=== PATIENT | male | born 1960 | race Caucasian/White ===

== ENCOUNTER 2017-08-03 23:45 | Emergency (ER) | payer OTHER ==
[2017-08-04 00:34] LABS: Hematocrit 38.8 % (42.0-52.0); Mean Platelet Volume 7.9 fL (7.4-10.4); White Blood Cell (WBC) Count 42.3 thou/uL (4.8-10.8)
[2017-08-04 00:37] LABS: Neutrophil 10 % (42-75); Reactive Lymphocytes 2 % (0-10)
[2017-08-04 00:38] LABS: ALT (SGPT) 20 U/L (8-55); AST (SGOT) 19 U/L (5-34); Alkaline Phosphatase 63 U/L (40-150); Anion Gap 15 mmol/L (10-20); BUN (Urea Nitrogen) 20 mg/dL (8.4-25.7); Bilirubin, Total 1.2 mg/dL (0.2-1.2); Calc. Creatinine Clearance 0 mL/min (70-130); Calcium 9.1 mg/dL (7.8-10.44); Carbon Dioxide 24 mmol/L (22-29); Chloride 104 mmol/L (98-107); Estimated GFR-MDRD 66; Globulin 2.4 g/dL (2.4-3.5); Magnesium 2.4 mg/dL (1.6-2.6); Protein, Total 6.8 g/dL (6.0-8.3)
[2017-08-04 01:04] LABS: Phosphorus 3.6 mg/dL (2.3-4.7); Uric Acid 5.9 mg/dL (3.5-7.2)
== END 2017-08-04 02:10 | disposition home or self-care (01) ==
LOC: ERS 23:45
DX: R59.0 Localized enlarged lymph nodes (principal); C91.10 Chronic lymphocytic leukemia of B-cell type not having achieved remission; J02.9 Acute pharyngitis, unspecified; F43.10 Post-traumatic stress disorder, unspecified; Z87.891 Personal history of nicotine dependence
CPT/HCPCS: 36415; 80053; 83735; 84100; 84550; 85025; 85060; 88184; 99283

== ENCOUNTER 2017-12-31 03:16 | Emergency (ER) | payer OTHER ==
[2017-12-31] MEDS ORDERED: Morphine 4 MG/ML VIAL ONE (04:08)
[2017-12-31] MEDS ORDERED: Ondansetron ODT 4 MG TAB ONE (04:08)
[2017-12-31 04:37] LABS: Hemoglobin 11.1 g/dL (14.0-18.0); Mean Corpuscular HGB CONC 34.4 g/dL (32.0-36.0); Mean Corpuscular Hemoglobin 34.8 pg (27.0-31.0); RBC Distribution Width 13.2 % (11.5-14.5); Red Blood Cell (RBC) Count 3.18 mill/uL (4.70-6.10); White Blood Cell (WBC) Count 36.6 thou/uL (4.8-10.8)
[2017-12-31 04:52] LABS: Lymphocytes 86 % (21-51); MDiff Complete? YES; Monocytes 3 % (0-10); Neutrophil 9 % (42-75); Platelet Count 124 thou/uL (130-400); Reactive Lymphocytes 2 % (0-10)
[2017-12-31 05:07] LABS: Bilirubin Negative (Negative); Blood, Urine Negative (Negative); Clarity CLEAR (Clear); Glucose, Urine (Dipstick) Negative (Negative); Leukocyte Negative (Negative); Nitrite Negative (Negative); Protein, Urine (Dipstick) Negative (Neg-Trace); Urobilinogen 0.2 mg/dL (0.2-1.0); pH, Urine 5.5 (5.0-9.0)
[2017-12-31 05:21] LABS: Specific Gravity, Urine 1.044 (1.002-1.036)
[2017-12-31 05:32] LABS: ALT (SGPT) 18 U/L (8-55); AST (SGOT) 15 U/L (5-34); Albumin 4.4 g/dL (3.5-5.0); Alkaline Phosphatase 52 U/L (40-150); Anion Gap 11 mmol/L (10-20); BUN (Urea Nitrogen) 19 mg/dL (8.4-25.7); Bilirubin, Total 1.1 mg/dL (0.2-1.2); Calc. Creatinine Clearance 0 mL/min (70-130); Calcium 9.3 mg/dL (7.8-10.44); Carbon Dioxide 24 mmol/L (22-29); Chloride 107 mmol/L (98-107); Estimated GFR-MDRD 85; Globulin 1.8 g/dL (2.4-3.5); Glucose 90 mg/dL (70-105); Potassium 3.8 mmol/L (3.5-5.1); Protein, Total 6.2 g/dL (6.0-8.3); Sodium 138 mmol/L (136-145)
[2017-12-31] MEDS ORDERED: Acetaminophen/Codeine 30-300mg Tablet ONE (06:00)
--- NOTE | 2017-12-31 08:10 | CT ---
PRELIMINARY REPORT/[facility]/EMERGENTY AFTER-HOURS PROCEDURE CT Abdomen and Pelvis With Intravenous Contrast CLINICAL HISTORY: 57 years old, male; Pain; Abdominal pain; Generalized; Patient HX: M57 with HX of bladder ca and CLL presented to ed C/O llq pain onset yesterday. Pt describes the pain as stabbing. Pt reports having so me mild pain in his rlq as well. Pt reports he went bathroom around 0230 last night and had a bm with small amount of hard stool. Pt denies HX of kidney stones. Pt denies fever, hematuria, dysu jaiden, vomiting, nausea, abdominal surgical HX. Pt reports he's been constipated previously and needed to take mag citrate to help. Undescended testicle which was surgically corrected when he was 10. TECHNIQUE: Axial computed tomography images of the abdomen and pelvis with intravenous contrast. Coronal reforma tted images were created and reviewed. CONTRAST: 100 mL of ISOVUE 370 administered intravenously. COMPARISON: No relevant prior studies available. FINDINGS: Lung bases: There is subpleural atelectasis of the dependent portions of the lungs. ABDOMEN: Liver: There are multiple liver hypodensities that cannot be further characterized on the current exa mination. Gallbladder and bile ducts: The gallbladder is normal. There is no evidence of biliary ductal dilatio n. No calcified stones. Pancreas: The pancreas appears normal. No ductal dilation. Spleen: The spleen is moderate markedly enlarged with wedge-shaped hypoattenuation involving the lowe r aspect of the spleen. This may represent splenomegaly from neoplastic etiology with auto infarction or possible prior splenic artery embolization for a consumptive coagulopathy. There is trace thickening/stranding within the adjacent retroperitoneal reflection. Adrenals: The adrenal glands are normal. Kidneys and ureters: The kidneys appear normal. No hydronephrosis. Stomach and bowel: The stomach is normal. No obstruction. No mucosal thickening. Appendix: A normal appendix is identified. PELVIS: Bladder: The bladder is normal. Reproductive: The prostate gland and seminal vesicles are normal. ABDOMEN and PELVIS: Intraperitoneal space: Normal. No free air. No significant fluid collection. Bones/joints: No acute fracture. No dislocation. Soft tissues: Normal. Vasculature: See above. Lymph nodes: There are innumerable periaortic lymph nodes the largest of which measures approximately 18 mm in short axis. Several enlarged pelvic lymph nodes are also present for example a 27 mm LEFT i nguinal chain lymph node and a 27 mm RIGHT inguinal chain lymph node. IMPRESSION: 1. Marked splenomegaly with nonspecific wedge-shaped hypoattenuation possibly representing Auto infar ction versus partial splenic embolization. Trace stranding within the adjacent retroperitoneal reflec tion is noted. 2. Marked abdominal lymphadenopathy as above. This corresponds with known CLL. Findings were discussed with NARCISO CAMPOS at 12/31/2017 5:05 AM CDT. Thank you for allowing us to participate in the care of your patient. Dictated and Authenticated by: Adi Maher MD 12/31/2017 5:05 AM Central Time ([place] & [place]) FINAL REPORT CT ABDOMEN AND PELVIS WITH CONTRAST: HISTORY: Left lower abdomen pain. COMPARISON: None. FINDINGS/IMPRESSION: Findings and impression are concordant with the preliminary report. POS: [facility]
== END 2017-12-31 08:27 ==
LOC: ERS 03:16
DX: D73.5 Infarction of spleen (principal); F43.10 Post-traumatic stress disorder, unspecified; Z87.891 Personal history of nicotine dependence; Z79.899 Other long term (current) drug therapy
CPT/HCPCS: 74177; 80053; 81003; 83605; 85025; 87086; 96361; 96374; J2270; Q0162

== ENCOUNTER 2018-02-21 03:01 | Inpatient (IN) | payer OTHER ==
[2018-02-21 03:35] LABS: #Lymphocytes 0.3 thou/uL (1.20-3.40); #Neutrophils 6.4 thou/uL (1.40-6.50); %Eosinophils 0.5 % (0.0-10.0); %Lymphocytes 4.8 % (21.0-51.0); %Monocytes 0.5 % (0.0-10.0); %Neutrophils 94.2 % (42.0-75.0); Hemoglobin 13.9 g/dL (14.0-18.0); Mean Corpuscular HGB CONC 34.4 g/dL (32.0-36.0); Mean Corpuscular Hemoglobin 32.1 pg (27.0-31.0); Mean Corpuscular Volume 93.3 fl (80.0-94.0); Platelet Count 150 thou/uL (130-400); RBC Distribution Width 14.3 % (11.5-14.5); Red Blood Cell (RBC) Count 4.32 mill/uL (4.70-6.10); White Blood Cell (WBC) Count 6.7 thou/uL (4.8-10.8)
[2018-02-21 03:55] LABS: ALT (SGPT) 16 U/L (8-55); AST (SGOT) 16 U/L (5-34); Albumin 4.7 g/dL (3.5-5.0); Alkaline Phosphatase 61 U/L (40-150); Anion Gap 14 mmol/L (10-20); BUN (Urea Nitrogen) 12 mg/dL (8.4-25.7); Bilirubin, Total 0.5 mg/dL (0.2-1.2); CK (CPK) 18 U/L (30-200); Calc. Creatinine Clearance 0 mL/min (70-130); Calcium 9.6 mg/dL (7.8-10.44); Carbon Dioxide 27 mmol/L (22-29); Chloride 104 mmol/L (98-107); Estimated GFR-MDRD 74; Glucose 121 mg/dL (70-105); Potassium 4.1 mmol/L (3.5-5.1); Protein, Total 6.7 g/dL (6.0-8.3); Sodium 141 mmol/L (136-145)
[2018-02-21 04:00] LABS: CKMB 0.5 ng/mL (0-6.6); Troponin I Less than 0.010 ng/mL (< 0.028)
[2018-02-21] MEDS ORDERED: Morphine 4 MG/ML VIAL ONE ×2 (04:29→09:20)
[2018-02-21] MEDS ORDERED: Morphine 10 MG/ML VIAL ONE (04:54)
[2018-02-21] MEDS ORDERED: Enoxaparin Sodium 100 MG/ML SYRINGE ONE (05:21)
[2018-02-21] MEDS ORDERED: Ondansetron PF 4 MG/2 ML Vial IVP PRN ×2 (06:01→07:47)
[2018-02-21] MEDS ORDERED: Acetaminophen 325 MG TAB PO PRN (06:01)
[2018-02-21] MEDS ORDERED: Ondansetron ODT 4 MG TAB SL PRN (06:01)
[2018-02-21 06:16] VITALS: BMI 25.8
[2018-02-21 07:02] LABS: Troponin I Less than 0.010 ng/mL (< 0.028)
[2018-02-21] MEDS: Morphine 4 MG/ML VIAL IV PRN ×2 (07:14→09:21)
[2018-02-21] MEDS ORDERED: Promethazine HCl 25 MG/ML VIAL IM PRN (07:47)
[2018-02-21] MEDS ORDERED: Zolpidem Tartrate 5 MG TAB PO PRN (07:47)
[2018-02-21] MEDS ORDERED: HYDROmorphone 10 mg/100 ml CADD IV PRN (07:47)
[2018-02-21] MEDS ORDERED: diphenhydrAMINE 50 MG/ML VIAL IM/IV PRN (07:47)
[2018-02-21] MEDS ORDERED: Naloxone HCl 0.4 mg/ml Vial IV PRN (07:47)
[2018-02-21] MEDS ORDERED: diphenhydrAMINE 25 MG CAP PO PRN (07:47)
--- NOTE | 2018-02-21 08:02 | RAD ---
AP VIEW CHEST: HISTORY: Chest pain. FINDINGS: AP view chest is obtained on 02/21/18. Comparison study is not available. AP view chest demonstrates right jugular MediPort catheter. A moderate degree of pulmonary vascular congestion is seen. No evidence of effusions, pneumonia, or pneumothorax is seen. There appears to be a healed left mid clavicular fracture. IMPRESSION: Pulmonary vascular congestion; otherwise, unremarkable AP view chest. POS: [facility]
--- NOTE | 2018-02-21 08:10 | CT ---
PRELIMINARY REPORT/[facility]/EMERGENCY AFTER HOURS PROCEDURE: Addendum created by Henry Márquez MD on 02/21/2018 4:18 AM Central Time ( & [place]) Findings discus sed with UNIQUE KEY MD at time of interpretation. Initial Report created on 02/21/2018 4:14 AM Cent ral Time ( & [place]) EXAM: CT Angiography Chest With Intravenous Contrast EXAM DATE/TIME: Exam ordered 02/21/2018 3:52 AM CLINICAL HISTORY: 57 years old, male; Pain; Chest pain; Patient HX: Er 1; Pt says l shoulder pain waking up from sleep, took pain medicine and began experiencing chest pain an hour ago. HX of bladder cancer - last round of chemo 02/01/18 TECHNIQUE: Axial computed tomographic angiography images of the chest with intravenous contrast using pulmonary embolism protocol. MIP reconstructed images were created and reviewed. COMPARISON: No relevant prior studies available. FINDINGS: Pulmonary arteries: Unremarkable. No pulmonary embolism. Aorta: Normal aorta. No thoracic aortic aneurysm. Lungs: Lungs are clear allowing for expiratory phase imaging. No mass. Pleural space: Unremarkable. No significant effusion. No pneumothorax. Heart: Unremarkable. No cardiomegaly. No significant pericardial effusion. No evidence of RV dysfunct ion. Mediastinum: Esophagus is unremarkable. Bones/joints: No acute fracture. No dislocation. Soft tissues: Gynecomastia. Lymph nodes: Unremarkable. No enlarged lymph nodes. Spleen: Splenomegaly. Moderate-sized posterolateral splenic infarction. IMPRESSION: Splenomegaly. Moderate-sized posterolateral splenic infarction. Thank you for allowing us to participate in the care of your patient. Dictated and Authenticated by: Henry Márquez MD 02/21/2018 4:14 AM Central Time ( & [place]) FINAL REPORT CT ANGIO CHEST PERFORMED WITH IV CONTRAST ENHANCEMENT WITH 3D RECONSTRUCTIONS: Date: 02/21/18 HISTORY: Chest pain. FINDINGS: The lungs are clear of any infiltrative process. There is some atelectatic change within the lung bas es. No pulmonary nodules are identified. There is no significant mediastinal or hilar adenopathy. The re is some mild coronary artery calcification seen. The thoracic aorta is normal in caliber. There is fairly good pulmonary artery opacification. There i s no evidence for pulmonary embolus. Visualized liver parenchyma is normal. There is a wedge-shaped low attenuation area within an enlarge d spleen most compatible with an infarct. Spleen is not seen in its entirety, but appears enlarged. I t measures 13.0 cm in transverse dimension. IMPRESSION: 1. No CT evidence of pulmonary embolus. 2. Splenomegaly with evidence of a splenic infarct. This report is in agreement with the preliminary report issued by [facility]. POS: [facility]
[2018-02-21] MEDS ORDERED: OXYCODONE HCL 5 MG PO PRN (08:47)
[2018-02-21] MEDS ORDERED: Non-Formulary Item 1 EACH (Prochlorperazine Maleate [Prochlorperazine Maleate] 10 MG) PO SCH (09:00)
[2018-02-21] MEDS ORDERED: Non-Formulary Item 1 EACH (Multivitamin [Multi-Vitamin Daily] 1 TABLET) PO SCH (09:00)
[2018-02-21] MEDS ORDERED: Non-Formulary Item 1 EACH (Fluconazole [Fluconazole] 200 MG) PO SCH (09:00)
[2018-02-21] MEDS ORDERED: Morphine 4 MG/ML VIAL SLOW IVP PRN (09:30)
[2018-02-21 09:39] LABS: Troponin I Less than 0.010 ng/mL (< 0.028)
[2018-02-21] MEDS ORDERED: oxyCODONE 5 MG TAB PO PRN (09:42)
[2018-02-21] MEDS: valACYclovir 500 MG TAB PO SCH ×2 (10:02→20:21)
[2018-02-21] MEDS: Fluconazole 100 MG TAB PO SCH (10:02)
[2018-02-21] MEDS: Multivit, Therapeutic 1 TAB PO SCH (10:02)
[2018-02-21] MEDS: Allopurinol 300 MG TAB PO SCH (10:02)
--- NOTE | 2018-02-21 10:11 | HP ---
DATE OF ADMISSION: 02/21/2018 HISTORY OF PRESENT ILLNESS: This is a 57-year-old white male with a history of CLL followed by Dr. Lisa sun, first diagnosed in 04/2016. He presents with left shoulder pain. The patient's CLL has bee n controlled for many years. He was doing well until November of this year when he developed left-sided abdominal pain and was diagnosed with a splenic infarct. He was then referred to his oncologist in [place] where he received chemotherapy. He was doing again well until yesterday about 1:15 a.m. when he developed acute onset of left shoulder pain. He took an oxycodone at home without relief. He the n came to the ER where he was given morphine and his pain decreased from a 10 to a 4. He does have a history of a shattered shoulder from war. At this time, the patient does not want to be referred to [place]. He did receive a CT scan of his abdomen which revealed evidence of a new splenic infarct. In November of this year his platelet count he states decreased to 4 and he required a platelet transfus ion. PAST MEDICAL HISTORY: 1. Nicotine dependence. 2. History of bladder cancer. 3. Erectile dysfunction. 4. 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 5. CLL followed by Dr. Li. PAST SURGICAL HISTORY: Include undescended testes 1970, knee surgery in 1990, bladder cancer surgery in 2003 and 2008, colonoscopy normal in 2003, bladder cancer tumor removal in [place] 07/2004 harman angelia with chemo, bladder cancer removal in 2005 with recurrence with further treatment. FAMILY HISTORY: Positive for diabetes, CVA, hypertension and some unknown cancers. MEDICATIONS: Oxycodone p.r.n., Zoloft 50 daily, Wellbutrin 150 b.i.d. and other chemo agents. REVIEW OF SYSTEMS: As above. ALLERGIES: SULFA. PHYSICAL EXAMINATION: VITAL SIGNS: Temperature 99.2, pulse 100, respirations 20, pulse ox 95, blood pressure 139/78. GENERAL: The patient is in moderate pain. HEENT: Clear. HEART: Regular rate and rhythm. LUNGS: Clear. Left shoulder is nontender. ABDOMEN: Soft, nontender, normal bowel sounds. EXTREMITIES: With no edema. LABORATORY: White count 6.7, H&H 13 and 40, platelet of 150. Electrolytes normal. Creatinine 1.04, BUN 12, blood sugar 121. Troponin I less than 0.010. BNP 10. Chest x-ray negative. Chest CT; splenomegaly with evidence of a splenic infarct. Has a moderate siz ed posterolateral splenic infarct. ASSESSMENT: 1. Severe left shoulder pain. 2. 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 3. Chronic lymphocytic leukemia presently followed by an oncologist in [place]. The patient has move d to [place] 1 year ago, but still has not yet moved entirely. Plans to move permanently to [place] in J lennie of this year. 4. Post-traumatic stress disorder. 5. Tobacco use. 6. History of bladder cancer. PLAN: 1. Consult Dr. Li. 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 3. Continue chemo.
[2018-02-21] MEDS: Dexamethasone 4 MG TAB PO SCH (10:21)
[2018-02-21] MEDS ORDERED: ISOVUE-370 76%-LOCM 1 ML ONE (14:49)
--- NOTE | 2018-02-21 18:48 | CON ---
DATE OF CONSULTATION: 02/21/2018 REASON FOR CONSULTATION: CLL. HISTORY OF PRESENT ILLNESS: Mr. Casey is a 57-year-old male who was diagnosed with CLL in 2015. He was monitored and did well until 11/2017 when he developed thrombocytopenia. 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 He was started on flu darabine, Rituxan and Cytoxan by his oncologist in [place]. He has received 2 cycles. He saw signifi cant improvement in his symptoms with the first cycle of chemotherapy. His pain at the time of the d iagnosis of the splenic infarct was in the left lower quadrant of his abdomen. Last night, he develo ped acute onset left shoulder pain. He took an oxycodone with cold water and immediately had chest p ain. His pain was 10/10. It was not associated with diaphoresis. He was brought to the emergency r oom here for evaluation. A CT angiogram was negative for pulmonary embolism. It did note the spleni c infarct, but did not compare to a prior CT. 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 PAST MEDICAL HISTORY: 1. CLL. 2. Superficial bladder cancer. 3. Posttraumatic stress disorder. 4. Shattered left shoulder. PAST SURGICAL HISTORY: 1. Undescended testicle. 2. Vasectomy. 3. Left knee surgery. 4. Cystoscopy, fulguration of bladder tumor in 2006. ALLERGIES: SULFA. HOME MEDICATIONS: 1. Tylenol No. 3 every 4 hours p.r.n. 2. Allopurinol 300 mg daily. 3. Dapsone 100 mg daily. 4. mg daily. 5. Colace 100 mg p.r.n. 6. Fluconazole 200 mg daily. 7. Mucinex daily. 8. Oxycodone 5 mg p.o. p.r.n. 9. Valacyclovir 500 mg b.i.d. FAMILY HISTORY: Sister, esophageal cancer. SOCIAL HISTORY: , has 2 children, lives with his spouse. 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 They split time l iving in [place] and [place] with permanently moving to [place] in March. REVIEW OF SYSTEMS: Twelve point review of system is negative except for noted in HPI. PHYSICAL EXAMINATION: VITAL SIGNS: Temperature is 97.9, pulse is 110, respiratory rate 18, BP is 136/78. He is 94% on 2 l iters. GENERAL: Well-developed, well-nourished male, in no acute distress. HEENT: Normocephalic, atraumatic. Pupils equal and reactive to light. NECK: Supple. CARDIOVASCULAR: Regular rate and rhythm. LUNGS: Clear. ABDOMEN: Soft, nontender, bowel sounds are positive. There is no palpable organomegaly. EXTREMITIES: No clubbing, cyanosis or edema. SKIN: No rash. HEMATOLOGIC: No petechia or purpura. NEUROLOGIC: Nonfocal. PSYCHIATRIC: The patient is alert and oriented and appropriate. PERTINENT LABORATORY AND X-RAYS: Current WBCs are 6.7, hemoglobin 13.9, hematocrit 40.3, platelet co unt is 150,000, 94% neutrophils, 5% lymphocytes. Sodium is 141, potassium 4.1, chloride 104, CO2 is 27, BUN is 12, creatinine 1.04, calcium is 9.6, bilirubin is 0.5, AST 16, ALT 16, alkaline phosphatas e is 61, creatinine kinase is 18. Troponin is negative. Serum total protein is 6.7, albumin 4.7, gl obulin 2. BNP is less than 10. Radiology per HPI. IMPRESSION: 1. Chronic lymphocytic leukemia, on chemotherapy. 2. History of splenic infarct. 3. Left shoulder and back pain. DISCUSSION: I spoke with Dr. Hyman and Dr. Li. Dr. Hyman looked at the patient's CT angiogram f rom yesterday and compared the spleen with the abdomen and pelvis CT dated in December. There is a sign ificant improvement in splenomegaly and a reduction in the splenic infarct consistent with the patien t's improvement in symptoms. His pain is different than when he presented in December with the infarct. He does have a history of left shoulder injury and chronic pain, while this could be from the splee n. It is unclear the cause of his left shoulder pain. We would recommend pain control at this time. He is due for treatment next week and he will follow up with his oncologist in [place] for treatment . Thank you for the consult. We will follow his hospital course with you.
[2018-02-21] MEDS: Prochlorperazine Maleate 5 MG TAB PO SCH (20:21)
[2018-02-21] MEDS: Docusate 100 MG CAP PO PRN (20:25)
--- NOTE | 2018-02-22 08:25 | PRG ---
DATE OF SERVICE: 02/22/2018 SUBJECTIVE: The patient's pain this morning is 2/10. Pain has improved since yesterday. 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 He is on 5 mg. OBJECTIVE: VITAL SIGNS: Temperature 97.7, pulse 86, respirations 18, pulse ox 94, blood pressure 124/68. HEART: Regular rate and rhythm. LUNGS: Clear. ABDOMEN: Soft. LABORATORY DATA: None. ASSESSMENT: 1. Chronic lymphocytic leukemia on chemo. 2. History of splenic infarct. 3. Left shoulder/back pain. Today, the pain seems to radiate from the thoracic spine to his left sh oulder and also to his right flank. 4. Post-traumatic stress disorder. 5. Tobacco use. 6. History of bladder cancer. PLAN: 1. We will discuss with Verónica for further plans. 2. Okay with anesthesia as the patient is requesting that the DATA DESIGNER stopped and the patient will be pl aced on oxycodone p.r.n. 3. We will obtain plain x-rays of the left shoulder and thoracic spine for now. If any other x-rays are needed, they can possibly done in [place]. I do not think he has had a bone scan. The patient i s appreciative and welcoming any recommendations on our part.
[2018-02-22] MEDS: Allopurinol 300 MG TAB PO SCH (09:22)
[2018-02-22] MEDS: Dexamethasone 4 MG TAB PO SCH (09:23)
[2018-02-22] MEDS: Fluconazole 100 MG TAB PO SCH (09:24)
[2018-02-22] MEDS: Multivit, Therapeutic 1 TAB PO SCH (09:24)
[2018-02-22] MEDS: Prochlorperazine Maleate 5 MG TAB PO SCH ×2 (09:25→20:27)
[2018-02-22] MEDS: valACYclovir 500 MG TAB PO SCH ×2 (09:25→20:28)
[2018-02-22] MEDS: Docusate 100 MG CAP PO PRN ×2 (09:26→20:28)
--- NOTE | 2018-02-22 09:27 | RAD ---
THREE VIEWS OF THE LEFT SHOULDER: DATE: 02/22/18. COMPARISON: None. HISTORY: Pain. FINDINGS: There is no evidence for dislocation of the glenohumeral joint. There is no widening of the acromioc lavicular or coracoclavicular interspace. Old left-sided clavicle fracture noted. IMPRESSION: No acute osseous abnormality. POS: [facility]
--- NOTE | 2018-02-22 09:28 | RAD ---
THORACIC SPINE 3 VIEWS: HISTORY: Back pain. FINDINGS/IMPRESSION: Degenerative changes are present in the thoracic spine. No fracture, subluxation, or bony destructio n is identified. POS: [facility]
[2018-02-22] MEDS: Acetaminophen/Codeine 30-300mg Tablet PO PRN ×3 (10:37→23:05)
[2018-02-22] MEDS ORDERED: oxyCODONE 5 MG TAB PO PRN (13:44)
--- NOTE | 2018-02-23 07:31 | DIS ---
DISCHARGE DIAGNOSES: 1. Intractable left shoulder pain. 2. Chronic lymphocytic leukemia, on chemotherapy. 3. Splenic infarct. 4. Post-traumatic stress disorder. 5. Tobacco use. 6. History of bladder cancer. DISCHARGE MEDICATIONS: Tylenol #3 one q.4 hours p.r.n., allopurinol 300 mg daily, dapsone 100 mg corinne ly, dexamethasone 4 mg p.o. daily, Colace 100 p.o. daily, Diflucan 200 p.o. daily, multivitamin daily , oxycodone 5 mg p.o. q.6 hours p.r.n., prochlorperazine 10 mg p.o. b.i.d., acyclovir 500 p.o. b.i.d. BRIEF HISTORY: This is a 57-year-old white male with a history of CLL followed by Dr. Li and a n oncologist in [place], first diagnosed in 04/2016. He recently had an exacerbation of his CLL and i s presently receiving chemotherapy. He presents with intractable left shoulder pain. He was admitte d for pain control and further evaluation to evaluate his cancer. The patient has been controlled fo r many years. He was doing well until November of this year when he developed left-sided abdominal pain and was diagnosed with a splenic infarct. He was seen by his oncologist and also he was started on chemotherapy. He was doing well until the day prior to admission at about 1:15 in the morning develo ped acute onset of left shoulder pain. He took his oxycodone without relief. He then presented to [facility] emergency room. HOSPITAL COURSE: Chest CTA was performed which did not reveal any evidence of pulmonary embolism. S plenomegaly was noted and a moderate size splenic infarct was noted. However, further review saw no change or further enhancement. The patient was placed on a ASTROBIOLOGIST drip and his pain was slowly resolved . At this time, as he is relatively pain free, feeling much better. Dr. Li and Verónica london consulted and had no further recommendations. They did talk this with Oncology in [place] and the patient upon discharge is to follow up with him. He has already completed 2 cycles of his fludarabi ne, Rituxan and Cytoxan. He will continue this treatment after discharge. The patient will be discharged at this time. He has plenty of oxycodone at home. However, he is doi ng quite well as his shoulder pain has somewhat resolved. He did require O2. He has a history of to bacco use and he may have a mild element of chronic obstructive pulmonary disease. However, he is pr esently off oxygen with O2 sat of 94%. The patient is welcome to follow up with me in 1 week. [facility] er, he plans to close on a house in [place] and plans to move there and seek further care. The adeline king has been very pleasant.
[2018-02-23 07:56] VITALS: BP 131/72; TEMP 97.5
--- NOTE | 2018-04-02 19:21 | EKG ---
Test Reason : Blood Pressure : / mmHG Vent. Rate : 084 BPM Atrial Rate : 084 BPM P-R Int : 136 ms QRS Dur : 092 ms QT Int : 384 ms P-R-T Axes : 038 024 039 degrees QTc Int : 453 ms Normal sinus rhythm Normal ECG Confirmed by YESI FALLON, ZULEMA Littlejohn ([id number]), editor book VANNESSA PACHECO ([id number]) on 04/02/2018 7:19:45 PM Referred By: Confirmed By:ZULEMA KEY MD
== END 2018-02-23 08:24 | disposition home or self-care (01) | DRG 556 ==
LOC: ERS 03:01 → OBSVTOIN 05:40 → 2SW 05:40 → ONC 10:24
PROVIDERS: ADMIT Family Medicine; ATTEND Family Medicine
DX: M25.512 Pain in left shoulder (principal); C91.10 Chronic lymphocytic leukemia of B-cell type not having achieved remission; F43.10 Post-traumatic stress disorder, unspecified; D73.5 Infarction of spleen; F17.210 Nicotine dependence, cigarettes, uncomplicated; M54.9 Dorsalgia, unspecified; Z92.21 Personal history of antineoplastic chemotherapy; Z85.51 Personal history of malignant neoplasm of bladder; Z88.2 Allergy status to sulfonamides
CPT/HCPCS: 36415; 71045; 71275; 72072; 80053; 82550; 82553; 83880; 84484; 85025; 93005; 94760; 96372; 96374; 96376; J1650; J2270; J8540; Q0162; Q0164